=== PATIENT | male | born 1995 | race African-American/Black ===

== ENCOUNTER 2018-02-28 15:54 | Emergency (ER) | payer MEDICAID ==
[2018-02-28] MEDS ORDERED: Ketorolac 60 MG/2 ML SDV IM ONE (16:33)
--- NOTE | 2018-02-28 16:33 | EDM.PDOC ---
ED HPI GENERAL MEDICAL PROBLEM - General Chief Complaint: ENT Problem Stated Complaint: EAR PAIN AND CANNOT HEAR OUT OF LT EAR Time Seen by Provider: 02/28/18 16:28 Source of Information: Reports: Patient History Limitations: Reports: No Limitations - History of Present Illness INITIAL COMMENTS - FREE TEXT/NARRATIVE: HISTORY AND PHYSICAL: History of present illness: [Patient is a 22-year-old male here for left ear pain. He states that pain started approximately 4 days ago. He's having muffled hearing out of the left. Pain is progressively gotten worse and hurts when he opens his mouth. Denies any fevers or chills. He is taking Motrin and Tylenol [id number] without relief.] Review of systems: As per history of present illness and below otherwise all systems reviewed and negative. Past medical history: As per history of present illness and as reviewed below otherwise noncontributory. Surgical history: As per history of present illness and as reviewed below otherwise noncontributory. Social history: No reported history of drug or alcohol abuse. Family history: As per history of present illness and as reviewed below otherwise noncontributory. Physical exam: General: Patient sitting comfortably in no acute distress HEENT: Left ear canal is erythematous, swollen, and otorrhea noted. The left TM is erythematous and bulging. Tender left anterior cervical lymphadenopathy. Right TM and ear canal normal. Atraumatic, normocephalic, pupils reactive, negative for conjunctival pallor or scleral icterus, mucous membranes moist, throat clear, neck supple, nontender, trachea midline. Lungs: Clear to auscultation, breath sounds equal bilaterally, chest nontender. Heart: S1S2, regular, negative for clicks, rubs Neuro: Awake, alert, oriented. Cranial nerves II through XII unremarkable. Cerebellum unremarkable. Motor and sensory unremarkable throughout. Exam nonfocal. Notes: Diagnostics: [] Therapeutics: [Total 60 mg IM] Impression: Acute otitis media, otitis externa Plan: #1 Take antibiotic as use drops as directed #2 Follow up with primary care provider #3 Return to emergency department as needed as discussed Definitive disposition and diagnosis as appropriate pending reevaluation and review of above. Left Ear Pain Score (Numeric/FACES): 9 - Related Data Allergies Allergy/AdvReac Type Severity Reaction Status Date / Time No Known Allergies Allergy Verified 02/28/18 16:19 Home Meds: Home Meds Amoxicillin/Clavulanate K [Augmentin 875-125 MG] 1 tab PO BID 7 Days #14 tablet 02/28/18 [Rx] Ciprofloxacin/Dexamethasone [Ciprodex Otic Susp] 4 drop OT BID #1 bottle [Rx] Past Medical History - Past Health History Medical/Surgical History: Denies Medical/Surgical History Social & Family History - Family History Family Medical History: Noncontributory - Tobacco Use Smoking Status *Q: Current Every Day Smoker Years of Tobacco use: 9 Packs/Tins Daily: 1 - Caffeine Use Caffeine Use: Reports: None - Recreational Drug Use Recreational Drug Use: No ED ROS ENT - Review of Systems Review Of Systems: ROS reveals no pertinent complaints other than HPI. ED EXAM, ENT - Physical Exam Exam: See Below (See dictation) Exam Limited By: No Limitations (The dictation) Course - Vital Signs Last Recorded V/S: Last Vital Signs Temp 36.9 C 02/28/18 16:15 Pulse 75 02/28/18 16:15 Resp 20 02/28/18 16:15 BP 151/109 H 02/28/18 16:15 Pulse Ox 98 02/28/18 16:15 Departure - Departure Time of Disposition: 16:29 Disposition: Home, Self-Care 01 Condition: Good Clinical Impression: Otitis media, Otitis externa - Discharge Information Prescriptions: Amoxicillin/Clavulanate K [Augmentin 875-125 MG] 1 tab PO BID 7 Days #14 tablet Ciprofloxacin/Dexamethasone [Ciprodex Otic Susp] 4 drop OT BID #1 bottle Referrals: PCP,None [Primary Care Provider] - Additional Instructions: The following information is given to patients seen in the emergency department who are being discharged to home. This information is to outline your options for follow-up care. We provide all patients seen in our emergency department with a follow-up referral. The need for follow-up, as well as the timing and circumstances, are variable depending upon the specifics of your emergency department visit. If you don't have a primary care physician on staff, we will provide you with a referral. We always advise you to contact your personal physician following an emergency department visit to inform them of the circumstance of the visit and for follow-up with them and/or the need for any referrals to a consulting specialist. The emergency department will also refer you to a specialist when appropriate. This referral assures that you have the opportunity for follow-up care with a specialist. All of these measure are taken in an effort to provide you with optimal care, which includes your follow-up. Under all circumstances we always encourage you to contact your private physician who remains a resource for coordinating your care. When calling for follow-up care, please make the office aware that this follow-up is from your recent emergency room visit. If for any reason you are refused follow-up, please contact the [facility] at and asked to speak to the emergency department charge nurse. [facility] [address] [place] [id number] [facility] [address] [place] [id number] #1 Take antibiotic as use drops as directed #2 Follow up with primary care provider #3 Return to emergency department as needed as discussed
== END 2018-02-28 17:10 | disposition home or self-care (01) ==
LOC: MW.ED 15:54
DX: H60.92 Unspecified otitis externa, left ear (principal); H66.92 Otitis media, unspecified, left ear; F17.210 Nicotine dependence, cigarettes, uncomplicated
CPT/HCPCS: 96372; 99282; J1885